=== PATIENT | female | born 1970 | race Asian ===

== ENCOUNTER → 2019-04-06 | Outpatient (CLI) | payer OTHER ==
[~2019-04-06] MED LIST: EXCEDRIN CAPLE1 EACH PO; IBUPROFEN 800800 M1 PO; LYRICA 50 MG50 MG PO; OMEPRAZOLE40 MG PO; TRAMADOL 50 MG50 MG PO; TYLENOL325 MG PO; VITAMIN B-12500 MCG PO; VITAMIN D250000 UNIT PO; VOLTAREN GEL 1100 G2 TOP
== END ==
LOC: M.PC 10:30
DX: M51.16 Intervertebral disc disorders with radiculopathy, lumbar region (principal); M47.26 Other spondylosis with radiculopathy, lumbar region

== ENCOUNTER → 2019-05-06 | Outpatient (CLI) | payer OTHER | LOC: M.PC 05:05 | DX: M51.16 Intervertebral disc disorders with radiculopathy, lumbar region (principal); M47.26 Other spondylosis with radiculopathy, lumbar region; M79.671 Pain in right foot; M79.672 Pain in left foot; G89.4 Chronic pain syndrome; I65.8 Occlusion and stenosis of other precerebral arteries; Z88.8 Allergy status to other drugs, medicaments and biological substances; Z88.5 Allergy status to narcotic agent ==

== ENCOUNTER → 2019-06-10 | Outpatient (CLI) | payer OTHER | LOC: M.PC 05:01 | DX: M51.16 Intervertebral disc disorders with radiculopathy, lumbar region (principal); M47.26 Other spondylosis with radiculopathy, lumbar region; G89.4 Chronic pain syndrome; M25.571 Pain in right ankle and joints of right foot; M25.572 Pain in left ankle and joints of left foot; Z79.899 Other long term (current) drug therapy ==

== ENCOUNTER → 2019-07-08 | Outpatient (CLI) | payer OTHER | LOC: M.PC 05:26 | DX: M47.26 Other spondylosis with radiculopathy, lumbar region (principal); M51.16 Intervertebral disc disorders with radiculopathy, lumbar region; G89.4 Chronic pain syndrome ==